=== PATIENT | female | born 1970 | race Asian ===

== ENCOUNTER 2024-03-13 18:37 | Outpatient (CLI) | payer MEDICARE, MEDICAID ==
[~2024-03-13 18:37] MED LIST: LEVO25TA4 PO
[2024-03-13 21:48] VITALS: BP 133/89; PULSE 72; RESP 18; TEMP 98; O2SAT 100
[2024-03-14] MEDS: HydrOXYzine HCL 25 MG TABLET PO ONE (06:30)
== END 2024-03-14 07:48 | disposition home or self-care (01) ==
LOC: CSU 18:37 → EDSTATUS 04-29 11:48
PROVIDERS: ATTEND Student in an Organized Health Care Education/Training Program
DX: F43.20 Adjustment disorder, unspecified (principal); F15.20 Other stimulant dependence, uncomplicated; F12.988 Cannabis use, unspecified with other cannabis-induced disorder
CPT/HCPCS: 90839; 90840; Z7610